=== PATIENT | male | born 1950 | race Two or more races ===

== ENCOUNTER → 2017-04-09 | Outpatient (CLI) | payer OTHER ==
[~2017-04-09] MED LIST: ALBU90OI INH; ALLO300 PO; ALPR.5 PO; ALPR.5CR PO; AMIT50 PO; AMLO5 PO; AMOX500 PO; ASPI81CH PO; AZIT250 PO; Adult Low Dose81 MG PO; Ambien5 MG PO; Bactrim Ds Tab1 EACH PO; CAND32 PO; CITA20 PO; CLON.1 PO; CODACE30 PO; Catapres0.1 MG PO; DEXA4 PO; DOXA4 PO; DOXY100 PO; ERGCAF PO; FAMO20 PO; Flomax0.4 MG PO; GABA300 PO; HYDACE5 PO; HYDCHL12.5 PO; HYDCHL25 PO; HYDCHL50 PO; HYDHCL25 PO; Halcion0.25 MG PO; Hydrochloroth12.5 MG PO; IBUP800 PO; LEVO750 PO; LEVSOD100 PO; LEVSOD50 PO; LISI20 PO; LISI5 PO; LOSA50 PO; LOSHYD100 PO; Lopressor 50 mg50 MG PO; MECL25 PO; MELO7.5 PO; METO100ER PO; METO50ER PO; MONT10T PO; NAPR500 PO; NIFE30ER PO; Norco 5-325 Ta1 EACH PO; OXYACE5T PO; POTCHL10ER PO; POTCHL20ER PO; PROCODE120 PO; PROP120ER; Pantoprazole So40 MG PO; Pyridium100 MG; RANI150 PO; SIMV40 PO; Synthroid50 MCG PO; TAMS.4ER PO; TIROSINT50 MCG PO; TYLECOD3 PO; Zofran Odt4 MG SL; [UNRECOGNIZED DRUG - OTHER]
[2017-04-12 18:32] LABS: Cotinine, Urine <5 ng/mL (<5); Nicotine, Urine <2 ng/mL (<2)
== END | disposition home or self-care (01) ==
LOC: OLS 12:37
PROVIDERS: Ophthalmology
DX: H25.11 Age-related nuclear cataract, right eye (principal)
CPT/HCPCS: G0480

== ENCOUNTER 2017-11-15 11:44 | Emergency (ER) | payer SELFPAY ==
[~2017-11-15] VITALS: Ht 162.6 cm; Wt 84.4 kg
[~2017-11-15 11:44] MED LIST changes: -HYDHCL25 PO; -LEVSOD100 PO; -Pantoprazole So40 MG PO; -TYLECOD3 PO
[2017-11-15] MEDS ORDERED: HYDHCL25 PO (12:48)
== END 2017-11-15 12:56 | disposition home or self-care (01) ==
LOC: ER 11:44
DX: F51.04 Psychophysiologic insomnia (principal); R51 Headache; I10 Essential (primary) hypertension; Z88.6 Allergy status to analgesic agent; Z79.899 Other long term (current) drug therapy; Z87.891 Personal history of nicotine dependence; Z86.73 Personal history of transient ischemic attack (TIA), and cerebral infarction without residual deficits
CPT/HCPCS: 96372; 99282; J1200

== ENCOUNTER 2017-11-22 14:13 | Emergency (ER) | payer MEDICARE ==
[~2017-11-22] VITALS: Ht 170.2 cm; Wt 81.7 kg
[~2017-11-22 14:13] MED LIST changes: +HYDHCL25 PO
[2017-11-22] MEDS ORDERED: Halcion0.25 MG PO (15:04)
== END 2017-11-22 15:32 | disposition home or self-care (01) ==
LOC: ER 14:13
DX: G47.00 Insomnia, unspecified (principal); I10 Essential (primary) hypertension; Z79.899 Other long term (current) drug therapy; Z88.6 Allergy status to analgesic agent; Z86.73 Personal history of transient ischemic attack (TIA), and cerebral infarction without residual deficits
CPT/HCPCS: 99282

== ENCOUNTER 2018-04-10 17:23 | Emergency (ER) | payer MEDICARE, OTHER ==
[~2018-04-10] VITALS: Ht 165.1 cm; Wt 84.4 kg
[~2018-04-10 17:23] MED LIST changes: +LEVSOD100 PO; +Pantoprazole So40 MG PO; +TYLECOD3 PO
[2018-04-10 18:34] LABS: BASOPHILS ABSOLUTE AUTO 0.09 K/mm3 (0.00-0.23); BASOPHILS PERCENT AUTO 1 % (0-2); EOSINOPHILS ABSOLUTE AUTO 0.26 K/mm3 (0.00-0.68); EOSINOPHILS PERCENT AUTO 4 % (0-6); Hematocrit 45.3 % (37.0-53.0); Hemoglobin 15.9 g/dL (13.5-17.5); IMMATURE GRAN ABSOLUTE AUTO 0.03 K/mm3 (0.00-0.10); IMMATURE GRAN PERCENT AUTO 0 % (0-1); LYMPHOCYTES ABSOLUTE AUTO 2.33 K/mm3 (0.84-5.20); LYMPHOCYTES PERCENT AUTO 31 % (21-46); MONOCYTES ABSOLUTE AUTO 1.25 K/mm3 (0.16-1.47); MONOCYTES PERCENT AUTO 17 % (4-13); Mean Corpuscular HGB 30.6 pg (26.0-34.0); Mean Corpuscular HGB Conc 35.1 g/dL (31.5-36.5); Mean Corpuscular Volume 87 fL (80-100); Mean Platelet Volume 10.2 fL (9.1-12.4); NEUTROPHILS ABSOLUTE AUTO 3.57 K/mm3 (1.96-9.15); NEUTROPHILS PERCENT AUTO 47 % (41-73); Platelet Count 214 K/mm3 (150-400); RDW Coefficient Variation 12.8 % (11.7-14.2); White Blood Cell Count 7.53 K/mm3 (4.00-11.30)
[2018-04-10 18:58] LABS: Troponin I <0.015 ng/mL (0.000-0.040)
[2018-04-10 19:02] LABS: Alanine Aminotransfer (ALT/SGP 33 U/L (12-78); Albumin/Globulin Ratio 1.1 (0.8-1.8); Alk Phos 103 U/L (50-136); Anion Gap 8 mmol/L (6-16); Aspartate Aminotrans (AST/SGOT 26 U/L (12-37); Bilirubin, Total 0.6 mg/dL (0.1-1.0); Blood Urea Nitrogen 16 mg/dL (8-24); Bun/Creatinine Ratio 13.6 (12.0-20.0); CO2, Blood 26 mmol/L (21-32); Calcium, Blood 8.5 mg/dL (8.5-10.1); Chloride, Blood 104 mmol/L (98-108); Creatinine, Blood 1.18 mg/dL (0.60-1.20); Globulin, Blood 3.8 g/dL (2.2-4.0); Glomerular Filtration Rate >60 (60-); Glucose, Blood 135 mg/dL (70-99); Potassium, Blood 3.6 mmol/L (3.5-5.5); Sodium, Blood 138 mmol/L (136-145); Total Protein, Blood 7.8 g/dL (6.4-8.2)
[2018-04-10] MEDS ORDERED: TRAZ100 PO (20:12)
[2018-04-10] MEDS ORDERED: BACL20 PO (20:13)
[2018-04-10] MEDS ORDERED: LORPSEER24 (20:14)
== END 2018-04-10 22:18 | disposition home or self-care (01) ==
LOC: ER 17:23
PROVIDERS: Physician Assistant
DX: R51 Headache (principal); Z88.8 Allergy status to other drugs, medicaments and biological substances; Z79.899 Other long term (current) drug therapy; I10 Essential (primary) hypertension; E03.9 Hypothyroidism, unspecified; Z86.73 Personal history of transient ischemic attack (TIA), and cerebral infarction without residual deficits; Z87.891 Personal history of nicotine dependence; Z85.46 Personal history of malignant neoplasm of prostate
CPT/HCPCS: 36415; 71046; 80053; 83690; 84484; 85025; 93005; 93010; 96374; 96375; 99284-25; J1100; J1200; J2405; J2765

== ENCOUNTER 2018-06-27 05:47 | Observation (INO) | payer MEDICARE, OTHER ==
[~2018-06-27] VITALS: Ht 162.6 cm; Wt 78.0 kg
[~2018-06-27 05:47] MED LIST changes: +BACL20 PO; +LORPSEER24; +TRAZ100 PO
[2018-06-27 06:47] LABS: BASOPHILS ABSOLUTE AUTO 0.04 K/mm3 (0.00-0.23); BASOPHILS PERCENT AUTO 1 % (0-2); EOSINOPHILS ABSOLUTE AUTO 0.05 K/mm3 (0.00-0.68); EOSINOPHILS PERCENT AUTO 1 % (0-6); Hematocrit 45.1 % (37.0-53.0); Hemoglobin 15.9 g/dL (13.5-17.5); IMMATURE GRAN ABSOLUTE AUTO 0.04 K/mm3 (0.00-0.10); IMMATURE GRAN PERCENT AUTO 1 % (0-1); LYMPHOCYTES ABSOLUTE AUTO 1.89 K/mm3 (0.84-5.20); LYMPHOCYTES PERCENT AUTO 28 % (21-46); MONOCYTES ABSOLUTE AUTO 0.76 K/mm3 (0.16-1.47); MONOCYTES PERCENT AUTO 11 % (4-13); Mean Corpuscular HGB 30.7 pg (26.0-34.0); Mean Corpuscular HGB Conc 35.3 g/dL (31.5-36.5); Mean Corpuscular Volume 87 fL (80-100); Mean Platelet Volume 9.9 fL (9.1-12.4); NEUTROPHILS ABSOLUTE AUTO 4.08 K/mm3 (1.96-9.15); NEUTROPHILS PERCENT AUTO 59 % (41-73); Platelet Count 197 K/mm3 (150-400); RDW Coefficient Variation 12.9 % (11.7-14.2); RDW Standard Deviation 40.8 fL (35.1-46.3); Red Blood Cell Count 5.18 M/mm3 (4.30-5.90); White Blood Cell Count 6.86 K/mm3 (4.00-11.30)
[2018-06-27] MEDS ORDERED: Inderal40 MG PO (07:03)
[2018-06-27 07:04] LABS: Alanine Aminotransfer (ALT/SGP 32 U/L (12-78); Albumin, Blood 4.1 g/dL (3.4-5.0); Albumin/Globulin Ratio 1.1 (0.8-1.8); Alk Phos 84 U/L (50-136); Anion Gap 8 mmol/L (6-16); Aspartate Aminotrans (AST/SGOT 12 U/L (12-37); Bilirubin, Total 0.4 mg/dL (0.1-1.0); Blood Urea Nitrogen 19 mg/dL (8-24); Bun/Creatinine Ratio 18.6 (12.0-20.0); CO2, Blood 24 mmol/L (21-32); Calcium, Blood 9.2 mg/dL (8.5-10.1); Chloride, Blood 108 mmol/L (98-108); Creatinine, Blood 1.02 mg/dL (0.60-1.20); Ethanol (Alcohol), Blood, Med <3 mg/dL; Globulin, Blood 3.6 g/dL (2.2-4.0); Glomerular Filtration Rate >60 (60-); Glucose, Blood 132 mg/dL (70-99); Potassium, Blood 3.2 mmol/L (3.5-5.5); Sodium, Blood 140 mmol/L (136-145); Total Protein, Blood 7.7 g/dL (6.4-8.2)
[2018-06-27] MEDS ORDERED: AMLO5 PO (07:04)
[2018-06-27 08:40] LABS: Source, Urine Clean Catch
[2018-06-27 08:43] LABS: U Amphetamine Screen Not Detected; U Barbituate Screen Not Detected; U Benzodiazapine Screen Not Detected; U Buprenorphine Screen Not Detected; U Cannabinoids Screen Not Detected; U Cocaine Screen Not Detected; U Methadone Screen Not Detected; U Methamphetamine Screen Not Detected; U Opiates Screen Not Detected; U Oxycodone Screen Not Detected; U Phencyclidine Screen Not Detected; U Propoxyphene Screen Not Detected
[2018-06-27 08:45] LABS: Appearance, Urine Clear (Clear); Bilirubin, Urine Neg (Neg); Blood, Urine Neg (Neg); Color, Urine Yellow (P-Yellow); Glucose Qualitative, Urine Neg (Neg); Ketones, Urine Neg (Neg); Leukocyte Esterase, Urine Neg (Neg); Nitrite, Urine Neg (Neg); Protein, Urine 2+ (Neg); Urobilinogen, Urine NORM (Normal)
[2018-06-27 08:56] LABS: Red Blood Cells, Urine Not Seen /hpf (0-2); Squamous Epithelial Cells Not Seen /hpf (Few); White Blood Cells, Urine Not Seen /hpf (0-5)
[2018-06-27 08:57] LABS: Bacteria Rare /hpf
[2018-06-27] MEDS ORDERED: Esgic Tablet1 EACH PO (12:05)
--- NOTE | 2018-06-27 15:43 | NUR ---
ER ADMIT- PT ARRIVED TO ROOM 357 VIA YURIY, SPOUSE AT BEDSIDE. PT IS MALDIVIAN SPEAKING ONLY, DAUGHTER ABLE TO TRANSLATE. PT A/O TO PERSON, PLACE AND FAMILY. PT DOES NOT FOLLOW DIRECTION WELL AND EASILY DISTRACTED. PT DENIES ANY PAIN OR OTHER COMPLAINTS. LS CLEAR, ON RA. HRR. TELE NSR AT 63. NO EDEMA PRESENT. BTX4. CLINICAL PHYSICIAN ASSISTANT STRONG AND EQUAL, MOUTH SYMMETRICAL. 20G TO RIGHT WRIST RUNNING NS AT 100ML/HR. PT ORIENTED TO ROOM AND CALL SYSTEM. DAUGHTER REPORTS SHE WILL BE STAYING WITH PT.
--- NOTE | 2018-06-27 15:46 | NUR ---
PT TO IMAGING FOR MRI.
--- NOTE | 2018-06-27 18:09 | NUR ---
SHIFT SUMMARY- PT A/O TO PERSON, PLACE AND FAMILY. PT FORGETFUL AND DIFFICULT WITH FOLLOWING DIRECTIONS. PT IS GREEK SPEAKING ONLY, DORMITORY MAID PHONE IN ROOM WELL CHILDREN HELPING TRANSLATE. PT REPORTS SORE NECK PER VISITOR IN ROOM, BACLOFEN GIVEN PER ORDERS. PT DENIES ANY OTHER COMPLAINTS. LS CLEAR, ON RA. TELE NSR 63. NEURO WNL. PER FAMILY PT IS NORMALLY A/O X4 AND REMAINS CONFUSED. PT PLACED ON BED ALARM DUE TO FOUND WONDERING THE HALLS. FAMILY TO STAY WITH PT TONIGHT. NO OTHER ACUTE CHANGES THIS SHIFT.
[2018-06-27] MEDS ORDERED: LACT10SY PO (18:22)
[2018-06-27] MEDS ORDERED: MONT10T PO (18:23)
[2018-06-27] MEDS ORDERED: ACET500 PO (18:24)
--- NOTE | 2018-06-27 18:31 | NUR ---
SON BROUGHT IN HOME MEDICATIONS, HOME MED LIST UPDATED.
[2018-06-28 05:03] LABS: BASOPHILS ABSOLUTE AUTO 0.03 K/mm3 (0.00-0.23); BASOPHILS PERCENT AUTO 1 % (0-2); EOSINOPHILS ABSOLUTE AUTO 0.06 K/mm3 (0.00-0.68); EOSINOPHILS PERCENT AUTO 1 % (0-6); IMMATURE GRAN ABSOLUTE AUTO 0.03 K/mm3 (0.00-0.10); IMMATURE GRAN PERCENT AUTO 1 % (0-1); LYMPHOCYTES ABSOLUTE AUTO 2.21 K/mm3 (0.84-5.20); LYMPHOCYTES PERCENT AUTO 36 % (21-46); MONOCYTES ABSOLUTE AUTO 0.78 K/mm3 (0.16-1.47); MONOCYTES PERCENT AUTO 13 % (4-13); Mean Corpuscular HGB 30.5 pg (26.0-34.0); Mean Corpuscular HGB Conc 34.9 g/dL (31.5-36.5); Mean Corpuscular Volume 87 fL (80-100); Mean Platelet Volume 9.9 fL (9.1-12.4); NEUTROPHILS ABSOLUTE AUTO 2.99 K/mm3 (1.96-9.15); NEUTROPHILS PERCENT AUTO 49 % (41-73); Platelet Count 213 K/mm3 (150-400); RDW Coefficient Variation 13.1 % (11.7-14.2); RDW Standard Deviation 41.1 fL (35.1-46.3); Red Blood Cell Count 4.92 M/mm3 (4.30-5.90)
[2018-06-28 05:23] LABS: Anion Gap 6 mmol/L (6-16); Blood Urea Nitrogen 17 mg/dL (8-24); Bun/Creatinine Ratio 17.4 (12.0-20.0); CO2, Blood 25 mmol/L (21-32); Calcium, Blood 8.9 mg/dL (8.5-10.1); Chloride, Blood 112 mmol/L (98-108); Creatinine, Blood 0.98 mg/dL (0.60-1.20); Glomerular Filtration Rate >60 (60-); Glucose, Blood 109 mg/dL (70-99); Potassium, Blood 3.6 mmol/L (3.5-5.5); Sodium, Blood 143 mmol/L (136-145)
--- NOTE | 2018-06-28 05:30 | NUR ---
68 Y/O MALE RESTED COMFORTABLY ALL EVENING WITH SON SPENDING THE NIGHT AT BEDSIDE IN LOUNGE CHAIR. PT HAS NO NEURO DEFICITS. PT ABLE TO TRANSFER AND AMBULATE TO BATHROOM WITHOUT ISSUE X 1 STANDBY ASSIST. PT DENIES PAIN OR NAUSEA. PTS BED IN LOW POSITION WITH CALL LIGHT AT SIDE.
[2018-06-28] MEDS ORDERED: ASPI81CH PO (12:59)
[2018-06-28] MEDS ORDERED: ATOR10 PO (13:00)
--- NOTE | 2018-06-28 14:00 | NUR ---
D/C INSTRUCTIONS PROVIDED AND EXPLAINED TO SON WHO TRANSLATED TO PT. IV AND TELE REMOVED. MEDS FAXED TO [facility]. PT D/C WITH SPOUSE AND SON VIA AMBULATION AT 1320.
== END 2018-06-28 13:26 | disposition home or self-care (01) ==
LOC: ER 05:47 → MEDS 05:48 → ENPENDDIS 06-28 12:40 → MEDS 06-28 13:26
PROVIDERS: Emergency Medicine; ADMIT Hospitalist
DX: G45.9 Transient cerebral ischemic attack, unspecified (principal); I67.82 Cerebral ischemia; G43.909 Migraine, unspecified, not intractable, without status migrainosus; I10 Essential (primary) hypertension; E03.9 Hypothyroidism, unspecified; K21.9 Gastro-esophageal reflux disease without esophagitis; N40.0 Benign prostatic hyperplasia without lower urinary tract symptoms; G47.00 Insomnia, unspecified; Z88.6 Allergy status to analgesic agent; Z79.899 Other long term (current) drug therapy; Z86.73 Personal history of transient ischemic attack (TIA), and cerebral infarction without residual deficits; Z85.46 Personal history of malignant neoplasm of prostate; Z79.82 Long term (current) use of aspirin
CPT/HCPCS: 36415; 70450; 70551; 71046; 80048; 80053; 81001; 82140; 85025; 93005; 93010; 93306; 93880; 99285-25; G0480; J1650; J7030

== ENCOUNTER → 2018-07-02 | Outpatient (CLI) | payer MEDICARE, OTHER ==
[~2018-07-02] MED LIST changes: +ACET500 PO; +ATOR10 PO; +Esgic Tablet1 EACH PO; +Inderal40 MG PO; +LACT10SY PO
[2018-07-02 17:47] LABS: Bilirubin, Urine Neg (Neg); Blood, Urine Neg (Neg); Glucose Qualitative, Urine Neg (Neg); Ketones, Urine Neg (Neg); Leukocyte Esterase, Urine Neg (Neg); Nitrite, Urine Neg (Neg); Protein, Urine 1+ (Neg); Urobilinogen, Urine NORM (Normal)
[2018-07-02 18:25] LABS: Appearance, Urine Clear (Clear); Color, Urine Yellow (P-Yellow)
== END | disposition home or self-care (01) ==
LOC: LAB 17:05 → LAB SHORT 17:05
PROVIDERS: Nurse Practitioner Family
DX: R39.9 Unspecified symptoms and signs involving the genitourinary system (principal)
CPT/HCPCS: 81003

== ENCOUNTER 2018-07-20 08:59 | Emergency (ER) | payer MEDICARE, OTHER ==
[~2018-07-20] VITALS: Ht 172.7 cm; Wt 102.1 kg
[2018-07-20 10:06] LABS: International Normalized Ratio 0.98; Prothrombin Time Results 10.4 Sec (9.7-11.5)
[2018-07-20 10:09] LABS: Alanine Aminotransfer (ALT/SGP 29 U/L (12-78); Albumin, Blood 4.5 g/dL (3.4-5.0); Albumin/Globulin Ratio 1.1 (0.8-1.8); Alk Phos 98 U/L (50-136); Anion Gap 9 mmol/L (6-16); Aspartate Aminotrans (AST/SGOT 10 U/L (12-37); Bilirubin, Total 0.5 mg/dL (0.1-1.0); Blood Urea Nitrogen 13 mg/dL (8-24); Bun/Creatinine Ratio 13.9 (12.0-20.0); CO2, Blood 28 mmol/L (21-32); Calcium, Blood 9.5 mg/dL (8.5-10.1); Chloride, Blood 104 mmol/L (98-108); Creatinine, Blood 0.94 mg/dL (0.60-1.20); Ethanol (Alcohol), Blood, Med <3 mg/dL; Glomerular Filtration Rate >60 (60-); Glucose, Blood 140 mg/dL (70-99); Potassium, Blood 3.4 mmol/L (3.5-5.5); Sodium, Blood 141 mmol/L (136-145); Total Protein, Blood 8.5 g/dL (6.4-8.2)
[2018-07-20 10:20] LABS: BASOPHILS ABSOLUTE AUTO 0.05 K/mm3 (0.00-0.23); BASOPHILS PERCENT AUTO 1 % (0-2); EOSINOPHILS ABSOLUTE AUTO 0.05 K/mm3 (0.00-0.68); EOSINOPHILS PERCENT AUTO 1 % (0-6); Hemoglobin 17.2 g/dL (13.5-17.5); IMMATURE GRAN ABSOLUTE AUTO 0.05 K/mm3 (0.00-0.10); IMMATURE GRAN PERCENT AUTO 1 % (0-1); LYMPHOCYTES ABSOLUTE AUTO 1.71 K/mm3 (0.84-5.20); LYMPHOCYTES PERCENT AUTO 19 % (21-46); MONOCYTES ABSOLUTE AUTO 0.74 K/mm3 (0.16-1.47); MONOCYTES PERCENT AUTO 8 % (4-13); Mean Corpuscular HGB 30.8 pg (26.0-34.0); Mean Corpuscular HGB Conc 35.8 g/dL (31.5-36.5); Mean Corpuscular Volume 86 fL (80-100); Mean Platelet Volume 9.9 fL (9.1-12.4); NEUTROPHILS ABSOLUTE AUTO 6.31 K/mm3 (1.96-9.15); NEUTROPHILS PERCENT AUTO 71 % (41-73); Platelet Count 227 K/mm3 (150-400); RDW Coefficient Variation 12.8 % (11.7-14.2); RDW Standard Deviation 39.8 fL (35.1-46.3); Red Blood Cell Count 5.58 M/mm3 (4.30-5.90); White Blood Cell Count 8.91 K/mm3 (4.00-11.30)
[2018-07-20 10:43] LABS: Magnesium, Blood 2.4 mg/dL (1.6-2.4); Troponin I <0.015 ng/mL (0.000-0.040)
[2018-07-20 11:21] LABS: Source, Urine Clean Catch
[2018-07-20 11:24] LABS: CPK Creatine Kinase 62 U/L (39-308)
[2018-07-20 11:24] LABS: Appearance, Urine Hazy (Clear); Bilirubin, Urine Neg (Neg); Blood, Urine Neg (Neg); Color, Urine Yellow (P-Yellow); Glucose Qualitative, Urine Neg (Neg); Ketones, Urine Neg (Neg); Leukocyte Esterase, Urine Neg (Neg); Nitrite, Urine Neg (Neg); Protein, Urine 3+ (Neg); Specific Gravity, Urine 1.015 (1.003-1.022); Urobilinogen, Urine NORM (Normal)
[2018-07-20 11:28] LABS: Creatine Kinase MB <1.0 ng/mL (0.0-3.6); Creatine Kinase MB Index Unable to Calculate (0.0-4.0)
[2018-07-20 11:37] LABS: Red Blood Cells, Urine 0-2 /hpf (0-2); White Blood Cells, Urine Not Seen /hpf (0-5)
[2018-07-20 11:38] LABS: Amorphous Heavy (0-Heavy); Bacteria Rare /hpf; Mucus Light (0-Heavy); Squamous Epithelial Cells Not Seen /hpf (Few)
[2018-07-20 11:42] LABS: U Amphetamine Screen Not Detected; U Barbituate Screen Not Detected; U Benzodiazapine Screen Not Detected; U Buprenorphine Screen Not Detected; U Cannabinoids Screen Not Detected; U Cocaine Screen Not Detected; U Methadone Screen Not Detected; U Methamphetamine Screen Not Detected; U Opiates Screen Not Detected; U Oxycodone Screen Not Detected; U Phencyclidine Screen Not Detected; U Propoxyphene Screen Not Detected
== END 2018-07-20 13:08 | disposition home or self-care (01) ==
LOC: ER 08:59
PROVIDERS: Emergency Medicine
DX: T44.3X1A Poisoning by other parasympatholytics [anticholinergics and antimuscarinics] and spasmolytics, accidental (unintentional), initial encounter (principal); R41.82 Altered mental status, unspecified; I10 Essential (primary) hypertension; Z86.73 Personal history of transient ischemic attack (TIA), and cerebral infarction without residual deficits; Z88.6 Allergy status to analgesic agent; Z79.899 Other long term (current) drug therapy; Z79.82 Long term (current) use of aspirin
CPT/HCPCS: 36415; 70450; 80053; 81001; 82140; 82550; 82553; 83735; 84484; 85025; 85610; 85730; 93005; 93010; G0480; J2405; J7030

== ENCOUNTER 2018-10-20 17:19 | Emergency (ER) | payer MEDICARE, OTHER ==
[~2018-10-20] VITALS: Ht 165.1 cm; Wt 81.7 kg
[2018-10-20] MEDS ORDERED: Prednisone20 MG PO (18:49)
== END 2018-10-20 18:57 | disposition home or self-care (01) ==
LOC: ER 17:19
DX: J30.9 Allergic rhinitis, unspecified (principal); Z88.8 Allergy status to other drugs, medicaments and biological substances; Z79.899 Other long term (current) drug therapy; Z79.82 Long term (current) use of aspirin; I10 Essential (primary) hypertension; Z86.73 Personal history of transient ischemic attack (TIA), and cerebral infarction without residual deficits; E03.9 Hypothyroidism, unspecified; Z85.46 Personal history of malignant neoplasm of prostate; Z87.891 Personal history of nicotine dependence
CPT/HCPCS: 87081; 87430; 99283; J7512

== ENCOUNTER 2019-03-17 08:49 | Day surgery (SDC) | payer MEDICARE, OTHER ==
[~2019-03-17] VITALS: Ht 157.5 cm; Wt 85.2 kg
[~2019-03-17 08:49] MED LIST changes: +ACETAMINOPHEN500 M2; +AMLO10 PO; +ATOR40TA PO; +AZELASTINE137 MCG/0. INH; +Aspirin EC81 MG PO; +DOCU100 PO; +FENO160 PO; +GAVILAX17 GM PO; +Generlac10 GM/15 M PO; +K-Dur20 MEQ PO; +ONDA8 PO; +PANT40 PO; +Prednisone20 MG PO; +SINUS RINSE PR1 EACH; +TRAZ50 PO; +ZYRTEC10 M2 PO
== END 2019-03-17 12:25 | disposition home or self-care (01) ==
LOC: ORSCSDS 08:49
PROVIDERS: Otolaryngology
PROC: 09BM0ZZ Excision of Nasal Septum, Open Approach (ICD-10-PCS; principal; 2019-03-17 10:30)
DX: J34.2 Deviated nasal septum (principal); J34.3 Hypertrophy of nasal turbinates; I10 Essential (primary) hypertension; K21.9 Gastro-esophageal reflux disease without esophagitis; E66.9 Obesity, unspecified; Z68.34 Body mass index [BMI] 34.0-34.9, adult; Z79.899 Other long term (current) drug therapy
CPT/HCPCS: J1100; J2250; J2405; J2704; J2710; J3010; J7120

== ENCOUNTER → 2019-04-16 | Outpatient (CLI) | payer MEDICARE, OTHER | END | disposition home or self-care (01) | LOC: LAB 15:35 → LAB SHORT 15:35 | DX: R10.9 Unspecified abdominal pain (principal) | CPT/HCPCS: 87338 ==

== ENCOUNTER 2019-10-10 10:00 | Day surgery (SDC) | payer MEDICARE, OTHER ==
[~2019-10-10] VITALS: Ht 162.6 cm; Wt 84.5 kg
--- NOTE | 2019-10-10 14:03 | NUR ---
Patient up to Ambulate independently. Gait steady. Discharge instructions reviewed with patient AND PT'S . Patient verbalizes understanding. Copy given to patient to take home.
--- NOTE | 2019-10-10 14:03 | NUR ---
Discharged via wheelchair to private car for ride home.
== END 2019-10-10 22:38 | disposition home or self-care (01) ==
LOC: ORSCMMR 10:00
PROVIDERS: Internal Medicine Gastroenterology
PROC: 0DB98ZX Excision of Duodenum, Via Natural or Artificial Opening Endoscopic, Diagnostic (ICD-10-PCS; principal; 2019-10-10 11:15)
PROC: 0DB78ZX Excision of Stomach, Pylorus, Via Natural or Artificial Opening Endoscopic, Diagnostic (ICD-10-PCS; principal; 2019-10-10 11:15)
PROC: 0DB58ZX Excision of Esophagus, Via Natural or Artificial Opening Endoscopic, Diagnostic (ICD-10-PCS; principal; 2019-10-10 11:15)
PROC: 0DBM8ZX Excision of Descending Colon, Via Natural or Artificial Opening Endoscopic, Diagnostic (ICD-10-PCS; principal; 2019-10-10 11:15)
DX: K21.9 Gastro-esophageal reflux disease without esophagitis (principal); R14.0 Abdominal distension (gaseous); K59.00 Constipation, unspecified; K29.70 Gastritis, unspecified, without bleeding; D12.4 Benign neoplasm of descending colon; K57.30 Diverticulosis of large intestine without perforation or abscess without bleeding; K64.8 Other hemorrhoids; I10 Essential (primary) hypertension; Z87.891 Personal history of nicotine dependence; Z79.899 Other long term (current) drug therapy; Z85.46 Personal history of malignant neoplasm of prostate
CPT/HCPCS: 88305; 88342; J2704; J7120

== ENCOUNTER → 2019-11-26 | Outpatient (CLI) | payer MEDICARE, OTHER ==
[2019-11-26 17:45] LABS: Source, Urine Clean Catch
[2019-11-26 19:52] LABS: Appearance, Urine Clear (Clear); Bilirubin, Urine Neg (Neg); Blood, Urine Neg (Neg); Color, Urine Yellow (P-Yellow); Glucose Qualitative, Urine Neg (Neg); Ketones, Urine Neg (Neg); Leukocyte Esterase, Urine Neg (Neg); Nitrite, Urine Neg (Neg); Protein, Urine 2+ (Neg); Urobilinogen, Urine NORM (Normal)
[2019-11-26 20:08] LABS: Bacteria Rare /hpf; Red Blood Cells, Urine 0-2 /hpf (0-2); Squamous Epithelial Cells Rare /hpf (Few); White Blood Cells, Urine 0-2 /hpf (0-5)
== END | disposition home or self-care (01) ==
LOC: LAB SHORT 17:42 → PLD 17:42
PROVIDERS: Nurse Practitioner Family
DX: R30.0 Dysuria (principal); R39.9 Unspecified symptoms and signs involving the genitourinary system
CPT/HCPCS: 81001

== ENCOUNTER 2020-08-13 14:38 | Emergency (ER) | payer MEDICARE, OTHER ==
[~2020-08-13] VITALS: Ht 160 cm; Wt 84.4 kg
[2020-08-13] MEDS ORDERED: PSEUDOEPHEDRINE30 M1 PO (16:37)
[2020-08-13] MEDS ORDERED: Kristalose20 GM PO (17:37)
[2020-08-13] MEDS ORDERED: Halcion0.25 MG PO (17:37)
== END 2020-08-13 18:22 | disposition home or self-care (01) ==
LOC: ER 14:38
DX: G47.00 Insomnia, unspecified (principal); I10 Essential (primary) hypertension; K21.9 Gastro-esophageal reflux disease without esophagitis; E03.9 Hypothyroidism, unspecified; Z88.6 Allergy status to analgesic agent; Z88.8 Allergy status to other drugs, medicaments and biological substances; Z86.73 Personal history of transient ischemic attack (TIA), and cerebral infarction without residual deficits; Z79.899 Other long term (current) drug therapy
CPT/HCPCS: 99282; A9270

== ENCOUNTER 2020-12-31 11:12 | Emergency (ER) | payer MEDICARE, OTHER ==
[~2020-12-31] VITALS: Ht 160 cm; Wt 81.7 kg
[~2020-12-31 11:12] MED LIST changes: +Kristalose20 GM PO; +PSEUDOEPHEDRINE30 M1 PO
[2020-12-31] MEDS ORDERED: EUTHYROX125 MC1 PO (12:05)
[2020-12-31] MEDS ORDERED: METOCLOPRAMIDE H PO (12:06)
[2020-12-31] MEDS ORDERED: LOSARTAN POTASS25 M2 PO (12:06)
[2020-12-31] MEDS ORDERED: FAMO20 PO (12:06)
[2020-12-31] MEDS ORDERED: IMITREX25 MG (12:07)
[2020-12-31] MEDS ORDERED: TRAZ50 PO (12:07)
[2020-12-31] MEDS ORDERED: ATOR40TA PO (12:08)
[2020-12-31] MEDS ORDERED: CONSTULOSE10 GM/155 PO (12:08)
[2020-12-31 12:09] LABS: BASOPHILS ABSOLUTE AUTO 0.07 K/mm3 (0.00-0.23); BASOPHILS PERCENT AUTO 1 % (0-2); EOSINOPHILS ABSOLUTE AUTO 0.09 K/mm3 (0.00-0.68); EOSINOPHILS PERCENT AUTO 1 % (0-6); Hemoglobin 16.4 g/dL (13.5-17.5); IMMATURE GRAN ABSOLUTE AUTO 0.02 K/mm3 (0.00-0.10); IMMATURE GRAN PERCENT AUTO 0 % (0-1); LYMPHOCYTES ABSOLUTE AUTO 2.14 K/mm3 (0.84-5.20); LYMPHOCYTES PERCENT AUTO 32 % (21-46); MONOCYTES ABSOLUTE AUTO 1.07 K/mm3 (0.16-1.47); MONOCYTES PERCENT AUTO 16 % (4-13); Mean Corpuscular HGB 29.5 pg (26.0-34.0); Mean Corpuscular HGB Conc 34.9 g/dL (31.5-36.5); Mean Corpuscular Volume 85 fL (80-100); Mean Platelet Volume 10.3 fL (9.1-12.4); NEUTROPHILS PERCENT AUTO 50 % (41-73); Platelet Count 189 K/mm3 (150-400); RDW Coefficient Variation 13.2 % (11.7-14.2); RDW Standard Deviation 41.1 fL (35.1-46.3); Red Blood Cell Count 5.55 M/mm3 (4.30-5.90); White Blood Cell Count 6.79 K/mm3 (4.00-11.30)
[2020-12-31] MEDS ORDERED: FLUT.05NI (12:14)
[2020-12-31] MEDS ORDERED: ASPI81CH PO (12:15)
[2020-12-31] MEDS ORDERED: PANTOPRAZOLE SO40 M2 PO (12:15)
[2020-12-31 12:22] LABS: Alanine Aminotransfer (ALT/SGP 25 U/L (12-78); Albumin, Blood 3.7 g/dL (3.4-5.0); Albumin/Globulin Ratio 0.9 (0.8-1.8); Alk Phos 77 U/L (50-136); Anion Gap 4 mmol/L (6-16); Aspartate Aminotrans (AST/SGOT 20 U/L (12-37); Bilirubin, Total 0.5 mg/dL (0.1-1.0); Blood Urea Nitrogen 12 mg/dL (8-24); Bun/Creatinine Ratio 10.7 (12.0-20.0); CO2, Blood 27 mmol/L (21-32); Calcium, Blood 9.1 mg/dL (8.5-10.1); Chloride, Blood 108 mmol/L (98-108); Creatinine, Blood 1.12 mg/dL (0.60-1.20); Glomerular Filtration Rate >60 (60-); Glucose, Blood 104 mg/dL (70-99); Potassium, Blood 3.5 mmol/L (3.5-5.5); Sodium, Blood 139 mmol/L (136-145); Total Protein, Blood 7.7 g/dL (6.4-8.2); Troponin I <0.015 ng/mL (0.000-0.040)
[2020-12-31] MEDS ORDERED: AMLO10 PO (15:14)
== END 2020-12-31 15:40 | disposition home or self-care (01) ==
LOC: ER 11:12
PROVIDERS: Emergency Medicine
DX: I10 Essential (primary) hypertension (principal); R07.89 Other chest pain; E03.9 Hypothyroidism, unspecified; K21.9 Gastro-esophageal reflux disease without esophagitis; Z88.8 Allergy status to other drugs, medicaments and biological substances; Z79.899 Other long term (current) drug therapy
CPT/HCPCS: 36415; 70450; 71045; 80053; 84484; 85025; 93005; 93010; 99284-25; A9270; J2405

== ENCOUNTER → 2021-05-17 | Outpatient (CLI) | payer MEDICARE, OTHER ==
[~2021-05-17] MED LIST changes: +CONSTULOSE10 GM/155 PO; +EUTHYROX125 MC1 PO; +FLUT.05NI; +IMITREX25 MG; +LOSARTAN POTASS25 M2 PO; +METOCLOPRAMIDE H PO; +PANTOPRAZOLE SO40 M2 PO
[2021-05-17 16:23] LABS: Free Thyroxine 1.53 ng/dL (0.70-1.60); Thyroid Stimulating Hormone 0.39 uIU/mL (0.360-4.800)
== END ==
LOC: LAB SHORT 15:14 → LAB 15:14
PROVIDERS: Chiropractor
DX: E03.9 Hypothyroidism, unspecified (principal)
CPT/HCPCS: 84439; 84443

== ENCOUNTER 2021-06-03 14:22 | Emergency (ER) | payer MEDICARE, OTHER ==
[~2021-06-03] VITALS: Ht 170.2 cm; Wt 90.7 kg
[2021-06-03 15:26] LABS: BASOPHILS ABSOLUTE AUTO 0.04 K/mm3 (0.00-0.23); BASOPHILS PERCENT AUTO 1 % (0-2); EOSINOPHILS ABSOLUTE AUTO 0.07 K/mm3 (0.00-0.68); EOSINOPHILS PERCENT AUTO 1 % (0-6); Hematocrit 50.4 % (37.0-53.0); IMMATURE GRAN ABSOLUTE AUTO 0.01 K/mm3 (0.00-0.10); IMMATURE GRAN PERCENT AUTO 0 % (0-1); LYMPHOCYTES ABSOLUTE AUTO 1.74 K/mm3 (0.84-5.20); LYMPHOCYTES PERCENT AUTO 30 % (21-46); MONOCYTES ABSOLUTE AUTO 0.75 K/mm3 (0.16-1.47); MONOCYTES PERCENT AUTO 13 % (4-13); Mean Corpuscular HGB 29.4 pg (26.0-34.0); Mean Corpuscular HGB Conc 33.7 g/dL (31.5-36.5); Mean Corpuscular Volume 87 fL (80-100); Mean Platelet Volume 10.5 fL (9.1-12.4); NEUTROPHILS PERCENT AUTO 55 % (41-73); Platelet Count 198 K/mm3 (150-400); RDW Coefficient Variation 13.2 % (11.7-14.2); RDW Standard Deviation 41.9 fL (35.1-46.3); Red Blood Cell Count 5.78 M/mm3 (4.30-5.90); White Blood Cell Count 5.81 K/mm3 (4.00-11.30)
[2021-06-03 15:41] LABS: Albumin, Blood 3.6 g/dL (3.4-5.0); Bilirubin, Total 0.5 mg/dL (0.1-1.0); Creatinine, Blood 1.2 mg/dL (0.60-1.20); Globulin, Blood 3.7 g/dL (2.2-4.0); Potassium, Blood 3.9 mmol/L (3.5-5.5); Total Protein, Blood 7.3 g/dL (6.4-8.2)
[2021-06-03 15:58] LABS: Influenza A, PCR NEGATIVE (NEGATIVE); Influenza B, PCR NEGATIVE (NEGATIVE); Resp Syncytial Virus, PCR NEGATIVE (NEGATIVE); SARS-Cov-2 (COVID-19) PCR, MMC NEGATIVE (NEGATIVE)
[2021-06-03] MEDS ORDERED: HYDR1TAB94 PO (21:17)
[2021-06-03] MEDS ORDERED: MIRALAX17 GM PO (21:17)
== END 2021-06-03 21:29 | disposition home or self-care (01) ==
LOC: ER 14:22
PROVIDERS: Physician Assistant
DX: I10 Essential (primary) hypertension (principal); R10.13 Epigastric pain; R51.9 Headache, unspecified; K21.9 Gastro-esophageal reflux disease without esophagitis; E03.9 Hypothyroidism, unspecified; Z86.73 Personal history of transient ischemic attack (TIA), and cerebral infarction without residual deficits; Z88.6 Allergy status to analgesic agent; Z88.8 Allergy status to other drugs, medicaments and biological substances; Z79.899 Other long term (current) drug therapy; Z79.82 Long term (current) use of aspirin
CPT/HCPCS: 0241U; 36415; 71045; 74177; 80053; 84484; 85025; 93005; 93010; 96374-59; 99284-25; A9270; J0360; Q9967

== ENCOUNTER 2021-08-29 01:37 | Observation (INO) | payer MEDICARE, OTHER ==
[~2021-08-29] VITALS: Ht 167.6 cm; Wt 79.7 kg
[~2021-08-29 01:37] MED LIST changes: +HYDR1TAB94 PO; +MIRALAX17 GM PO
[2021-08-29 01:59] LABS: BASOPHILS ABSOLUTE AUTO 0.06 K/mm3 (0.00-0.23); BASOPHILS PERCENT AUTO 1 % (0-2); EOSINOPHILS ABSOLUTE AUTO 0.14 K/mm3 (0.00-0.68); EOSINOPHILS PERCENT AUTO 2 % (0-6); Hematocrit 42.1 % (37.0-53.0); Hemoglobin 15.2 g/dL (13.5-17.5); IMMATURE GRAN ABSOLUTE AUTO 0.02 K/mm3 (0.00-0.10); IMMATURE GRAN PERCENT AUTO 0 % (0-1); LYMPHOCYTES ABSOLUTE AUTO 2.13 K/mm3 (0.84-5.20); LYMPHOCYTES PERCENT AUTO 32 % (21-46); MONOCYTES ABSOLUTE AUTO 1.12 K/mm3 (0.16-1.47); MONOCYTES PERCENT AUTO 17 % (4-13); Mean Corpuscular HGB 29.9 pg (26.0-34.0); Mean Corpuscular HGB Conc 36.1 g/dL (31.5-36.5); Mean Corpuscular Volume 83 fL (80-100); Mean Platelet Volume 9.4 fL (9.1-12.4); NEUTROPHILS ABSOLUTE AUTO 3.22 K/mm3 (1.96-9.15); NEUTROPHILS PERCENT AUTO 48 % (41-73); Platelet Count 203 K/mm3 (150-400); RDW Standard Deviation 39.3 fL (35.1-46.3); Red Blood Cell Count 5.09 M/mm3 (4.30-5.90); White Blood Cell Count 6.69 K/mm3 (4.00-11.30)
[2021-08-29 02:20] LABS: Alanine Aminotransfer (ALT/SGP 21 U/L (12-78); Albumin, Blood 3.8 g/dL (3.4-5.0); Albumin/Globulin Ratio 1.2 (0.8-1.8); Alk Phos 76 U/L (50-136); Anion Gap 9 mmol/L (6-16); Aspartate Aminotrans (AST/SGOT 16 U/L (12-37); Bilirubin, Total 0.4 mg/dL (0.1-1.0); Blood Urea Nitrogen 13 mg/dL (8-24); Bun/Creatinine Ratio 11.3 (12.0-20.0); CO2, Blood 31 mmol/L (21-32); Calcium, Blood 9.1 mg/dL (8.5-10.1); Chloride, Blood 94 mmol/L (98-108); Creatinine, Blood 1.15 mg/dL (0.60-1.20); Ethanol (Alcohol), Blood, Med <3 mg/dL; Globulin, Blood 3.3 g/dL (2.2-4.0); Glomerular Filtration Rate 68 (60-); Glucose, Blood 116 mg/dL (70-99); Magnesium, Blood 2.1 mg/dL (1.6-2.4); Potassium, Blood 3.1 mmol/L (3.5-5.5); Sodium, Blood 134 mmol/L (136-145); Total Protein, Blood 7.1 g/dL (6.4-8.2)
[2021-08-29 02:33] LABS: Source, Urine Voided
[2021-08-29 02:41] LABS: Bilirubin, Urine Neg (Neg); Blood, Urine Neg (Neg); Glucose Qualitative, Urine Neg (Neg); Ketones, Urine Neg (Neg); Leukocyte Esterase, Urine Neg (Neg); Nitrite, Urine Neg (Neg); Protein, Urine Neg (Neg); Urobilinogen, Urine NORM (Normal)
[2021-08-29 02:48] LABS: Appearance, Urine Clear (Clear); Color, Urine Pale Yellow (P-Yellow)
[2021-08-29 04:07] LABS: Influenza A, PCR NEGATIVE (NEGATIVE); Influenza B, PCR NEGATIVE (NEGATIVE); Resp Syncytial Virus, PCR NEGATIVE (NEGATIVE); SARS-Cov-2 (COVID-19) PCR, MMC NEGATIVE (NEGATIVE)
[2021-08-29] MEDS ORDERED: TRAZ100 PO (05:21)
[2021-08-29] MEDS ORDERED: LOSARTAN-HCTZ1 EAC5 PO (05:21)
[2021-08-29] MEDS ORDERED: NURTEC ODT75 MG PO (05:23)
[2021-08-29] MEDS ORDERED: CARVEDILOL3.125 MG PO (05:23)
[2021-08-29] MEDS ORDERED: TAMSULOSIN HCL0.4 M1 PO (05:23)
[2021-08-29] MEDS ORDERED: NEURONTIN300 MG PO (05:23)
[2021-08-29] MEDS ORDERED: EUTHYROX125 MC1 PO (05:24)
[2021-08-29 05:41] LABS: Cholesterol 186 mg/dL (50-200); HDL Cholesterol 46 mg/dL (>39); Low Density Lipoprotein Chol 91 mg/dL (0-110); Triglycerides 245 mg/dL (30-160); Very Low Density Lipoprot Chol 49 mg/dL (6-32)
--- NOTE | 2021-08-29 10:45 | NUR ---
Echocardiogram completed.
--- NOTE | 2021-08-29 18:45 | NUR ---
ADMISSION/SHIFT SUMMARY: PT ADMIT FROM ER ARRIVING APPROX 1530 TO UNIT. PT ABLE TO STAND AND TRANSFER SELF F/GURNEY TO BED W/SBA. PT IS A&Ox4, [place] SPEAKING W/FAMILY IN ROOM FOR TRANSLATION. SATS >93% ON RA. SR ON MONITOR, HTN APPEARS CONTROLLED AT THIS TIME. PT REPORTS MILD IMPROVEMENT TO HEADACHE, REPORTS CONTINUED DIZZINESS. ORTHO VS COMPLETED AND IN CHART. PT AMBULATES TO/FROM RESTROOM W/SBA, TOLERATES WELL. AT THIS TIME, PT RESTING QUIETLY IN ROOM WITH FAMILY AT BEDSIDE. WCTM.
[2021-08-30 04:06] LABS: Calcium, Blood 8.9 mg/dL (8.5-10.1); Creatinine, Blood 1.25 mg/dL (0.60-1.20); Potassium, Blood 3.3 mmol/L (3.5-5.5)
--- NOTE | 2021-08-30 06:04 | NUR ---
SHIFT SUMMARY ASSUMED CARE OF PT AROUND 1900. PT IS A/OX4 BUT DIFFICULT TO ASSESS DUE TO ONLY WOLOF SPEAKING. SON EXPRESSSED CONCERN EARLIER THAT PT WAS TAKING TOO MANY MEDICATIONS AND POSSIBLE MULTIPLE TIMES, CAUSEING HIS HIGH BLOOD PRESSSURE. PT SON EXPRESSED THAT SOMETIMES HE DOES NOT KNOW WHAT HIS FATHER SAYS. LUNG SOUNDS CLEAR. HEART SOUNDS REGULAR. NO ACUTE EVENTS DURING THE NIGHT, PT SLEPT T/O THE NIGHT. PT STAYED WITH PT.
--- NOTE | 2021-08-30 08:53 | NUR ---
DR. GREEN CAME INTO PATIENTS ROOM AND USED THE PHONE VARIETY LATHE OPERATOR TO COMMUNICATE. SPOKE WITH PATIENT AND ON HOW IMPORTANT IT IS HE TAKES HIS BP MEDICATIONS AND TO KEEP HIS BP 150 AND BELOW SYSTOLIC. BOTH VERBALIZED UNDERSTANDING AND HAD NO FURTHER QUESTIONS. CALL LIGHT WITHIN REACH. TOLD THE PATIENT TO POINT AT THE VARIETY LATHE OPERATOR PHONE IF HE OR HIS HAD ANY MORE QUESTIONS OR NEEDED ANYTHING.
[2021-08-30] MEDS ORDERED: LOSARTAN POTAS100 M1 PO (11:34)
[2021-08-30] MEDS ORDERED: CATAPRES0.2 M1 PO (11:34)
--- NOTE | 2021-08-30 12:10 | NUR ---
DISCHARGE NOTE: PATIENTS SON WAS IN THE ROOM AND VERBALIZED THAT HE WAS COMFORTABLE TRANSLATING TO HIS FATHER ABOUT INSTRUCTIONS. BOTH VERBALIZED UNDERSTANDING OF INSTRUCTIONS AND HAD NO FURTHER QUESTIONS. IV WAS TAKEN OUT AND WNL. PATIENTS BP HAS BEEN IN THE 130'S SYSTOLIC. PATIENT DENIES HEADACHE AND DIZZINESS AT THIS TIME. PATIENTS NEW MEDICATIONS WERE FAXED TO HIS PREFERRED PHARMACY WHICH IS [facility]. PATIENT HAS ITEMS IN THE ROOM GATHERED AND IS DRESSED. PATIENT REFUSES THE WHEELCHAIR AND WOULD PREFER TO WALK TO SON'S CAR TO BE TAKEN HOME.
== END 2021-08-30 12:31 | disposition home or self-care (01) ==
LOC: ER 01:37 → ERHOLD 01:38 → PCU 15:16
PROVIDERS: Emergency Medicine; Internal Medicine; ADMIT Family Medicine
DX: I16.0 Hypertensive urgency (principal); I11.9 Hypertensive heart disease without heart failure; I08.0 Rheumatic disorders of both mitral and aortic valves; K21.9 Gastro-esophageal reflux disease without esophagitis; E03.9 Hypothyroidism, unspecified; E87.6 Hypokalemia; N40.0 Benign prostatic hyperplasia without lower urinary tract symptoms; E78.1 Pure hyperglyceridemia; Z88.8 Allergy status to other drugs, medicaments and biological substances; Z88.6 Allergy status to analgesic agent; Z79.82 Long term (current) use of aspirin; Z20.822 Contact with and (suspected) exposure to COVID-19; Z87.891 Personal history of nicotine dependence; R94.31 Abnormal electrocardiogram [ECG] [EKG]
CPT/HCPCS: 0241U; 36415; 70496; 70498; 71045; 80048; 80053; 80061; 81003; 82140; 83605; 83735; 84484; 85025; 93005; 93010; 93306; 97161; A9270; G0480; J0360; J1650; J7030; Q9967

== ENCOUNTER 2022-05-18 15:04 | Emergency (ER) | payer MEDICARE, OTHER ==
[~2022-05-18] VITALS: Ht 165.1 cm; Wt 84.0 kg
[~2022-05-18 15:04] MED LIST changes: +CARVEDILOL3.125 MG PO; +CATAPRES0.2 M1 PO; +LOSARTAN POTAS100 M1 PO; +LOSARTAN-HCTZ1 EAC5 PO; +NEURONTIN300 MG PO; +NURTEC ODT75 MG PO; +TAMSULOSIN HCL0.4 M1 PO
[2022-05-18 16:13] LABS: BASOPHILS ABSOLUTE AUTO 0.06 K/mm3 (0.00-0.23); BASOPHILS PERCENT AUTO 1 % (0-2); EOSINOPHILS ABSOLUTE AUTO 0.09 K/mm3 (0.00-0.68); EOSINOPHILS PERCENT AUTO 1 % (0-6); Hematocrit 42.5 % (37.0-53.0); Hemoglobin 15.5 g/dL (13.5-17.5); IMMATURE GRAN ABSOLUTE AUTO 0.04 K/mm3 (0.00-0.10); IMMATURE GRAN PERCENT AUTO 1 % (0-1); LYMPHOCYTES ABSOLUTE AUTO 1.99 K/mm3 (0.84-5.20); LYMPHOCYTES PERCENT AUTO 27 % (21-46); MONOCYTES ABSOLUTE AUTO 0.97 K/mm3 (0.16-1.47); MONOCYTES PERCENT AUTO 13 % (4-13); Mean Corpuscular HGB 30.1 pg (26.0-34.0); Mean Corpuscular HGB Conc 36.5 g/dL (31.5-36.5); Mean Corpuscular Volume 83 fL (80-100); Mean Platelet Volume 9.8 fL (9.1-12.4); NEUTROPHILS ABSOLUTE AUTO 4.12 K/mm3 (1.96-9.15); NEUTROPHILS PERCENT AUTO 57 % (41-73); Platelet Count 212 K/mm3 (150-400); RDW Coefficient Variation 13.2 % (11.7-14.2); RDW Standard Deviation 39.3 fL (35.1-46.3); Red Blood Cell Count 5.15 M/mm3 (4.30-5.90); White Blood Cell Count 7.27 K/mm3 (4.00-11.30)
[2022-05-18 16:34] LABS: Albumin, Blood 3.9 g/dL (3.4-5.0); Albumin/Globulin Ratio 1.1 (0.8-1.8); Bilirubin, Total 0.3 mg/dL (0.1-1.0); Bun/Creatinine Ratio 13.1 (12.0-20.0); Calcium, Blood 9.2 mg/dL (8.5-10.1); Creatinine, Blood 0.99 mg/dL (0.60-1.20); Globulin, Blood 3.6 g/dL (2.2-4.0); Potassium, Blood 3.1 mmol/L (3.5-5.5); Total Protein, Blood 7.5 g/dL (6.4-8.2)
[2022-05-18] MEDS ORDERED: Catapres0.1 MG PO (21:16)
[2022-05-18] MEDS ORDERED: Coreg6.25 MG PO (21:16)
[2022-05-18] MEDS ORDERED: LOSA50 PO (21:16)
== END 2022-05-18 22:02 | disposition home or self-care (01) ==
LOC: ER 15:04
PROVIDERS: Student in an Organized Health Care Education/Training Program
DX: I10 Essential (primary) hypertension (principal); R00.2 Palpitations; K21.9 Gastro-esophageal reflux disease without esophagitis; E03.9 Hypothyroidism, unspecified; Z79.890 Hormone replacement therapy; Z79.899 Other long term (current) drug therapy; Z79.82 Long term (current) use of aspirin; Z88.6 Allergy status to analgesic agent; Z88.8 Allergy status to other drugs, medicaments and biological substances; Z86.73 Personal history of transient ischemic attack (TIA), and cerebral infarction without residual deficits; Z91.14 Patient's other noncompliance with medication regimen
CPT/HCPCS: 36415; 71046; 80053; 84484; 85025; 93005; 93010; 99284-25; A9270

== ENCOUNTER → 2023-09-10 | Outpatient (CLI) | payer MEDICARE, OTHER ==
[~2023-09-10] MED LIST changes: +Coreg6.25 MG PO
== END ==
LOC: LAB SHORT 07:52 → PLD 07:52
DX: L82.1 Other seborrheic keratosis (principal)
CPT/HCPCS: 88305

== ENCOUNTER 2024-01-16 19:05 | Inpatient (IN) | payer MEDICARE, OTHER ==
[~2024-01-16] VITALS: Ht 167.6 cm; Wt 77.0 kg
[2024-01-16 21:07] LABS: Albumin, Blood 4.1 g/dL (3.4-5.0); Albumin/Globulin Ratio 1.2 (0.8-1.8); Bilirubin, Total 0.8 mg/dL (0.1-1.0); Bun/Creatinine Ratio 12.3 (12.0-20.0); Calcium, Blood 9.9 mg/dL (8.5-10.1); Creatinine, Blood 0.82 mg/dL (0.60-1.20); Globulin, Blood 3.5 g/dL (2.2-4.0); Magnesium, Blood 1.5 mg/dL (1.6-2.4); Potassium, Blood 3.3 mmol/L (3.5-5.5); Total Protein, Blood 7.6 g/dL (6.4-8.2)
[2024-01-16 21:28] LABS: Influenza A, PCR NEGATIVE (NEGATIVE); Influenza B, PCR NEGATIVE (NEGATIVE); Resp Syncytial Virus, PCR NEGATIVE (NEGATIVE); SARS-Cov-2 (COVID-19) PCR, MMC NEGATIVE (NEGATIVE)
[2024-01-16 21:31] LABS: BASOPHILS ABSOLUTE AUTO 0.03 K/mm3 (0.00-0.23); BASOPHILS PERCENT AUTO 0 % (0-2); EOSINOPHILS ABSOLUTE AUTO 0.02 K/mm3 (0.00-0.68); EOSINOPHILS PERCENT AUTO 0 % (0-6); Hematocrit 46.4 % (37.0-53.0); Hemoglobin 17.4 g/dL (13.5-17.5); IMMATURE GRAN ABSOLUTE AUTO 0.02 K/mm3 (0.00-0.10); IMMATURE GRAN PERCENT AUTO 0 % (0-1); LYMPHOCYTES ABSOLUTE AUTO 1.35 K/mm3 (0.84-5.20); LYMPHOCYTES PERCENT AUTO 17 % (21-46); MONOCYTES ABSOLUTE AUTO 0.81 K/mm3 (0.16-1.47); MONOCYTES PERCENT AUTO 10 % (4-13); Mean Corpuscular HGB 29.9 pg (26.0-34.0); Mean Corpuscular HGB Conc 37.5 g/dL (31.5-36.5); Mean Corpuscular Volume 80 fL (80-100); Mean Platelet Volume 9.9 fL (9.1-12.4); NEUTROPHILS ABSOLUTE AUTO 5.56 K/mm3 (1.96-9.15); NEUTROPHILS PERCENT AUTO 71 % (41-73); Platelet Count 257 K/mm3 (150-400); RDW Coefficient Variation 12.4 % (11.7-14.2); RDW Standard Deviation 35.2 fL (35.1-46.3); Red Blood Cell Count 5.82 M/mm3 (4.30-5.90); White Blood Cell Count 7.79 K/mm3 (4.00-11.30)
[2024-01-16] MEDS ORDERED: Potassium Chl 20MEQ/Water100ML 100 ML IV ONE (23:40)
[2024-01-16] MEDS ORDERED: Mag Sulfate 1 GM/D5% 100ML 100 ML IV ONE (23:40)
[2024-01-17] VITALS (10 sets, daily range): BP systolic 132–198; BP diastolic 67–119
[2024-01-17 00:12] LABS: Source, Urine Clean Catch
[2024-01-17 00:21] LABS: Bilirubin, Urine Neg (Neg); Blood, Urine Neg (Neg); Glucose Qualitative, Urine Neg (Neg); Ketones, Urine Neg (Neg); Leukocyte Esterase, Urine Neg (Neg); Nitrite, Urine Neg (Neg); Protein, Urine 1+ (Neg); Urobilinogen, Urine NORM (Normal); pH, Urine 6.5 (5.0-8.0)
[2024-01-17 00:29] LABS: Appearance, Urine Clear (Clear); Color, Urine Yellow (P-Yellow)
[2024-01-17] MEDS ORDERED: NS 1,000 ML IV SCH (00:35)
[2024-01-17] MEDS ORDERED: FLU VACC TS2024-25(6MOS UP)/PF 45 MCG/0.5 ML SYRINGE IM SCH (01:05)
[2024-01-17] MEDS ORDERED: ALLO100 PO (02:37)
[2024-01-17] MEDS ORDERED: CYMBALTA30 M1 PO (02:38)
[2024-01-17] MEDS ORDERED: AMLO10 PO (02:38)
[2024-01-17] MEDS ORDERED: Enalapril Malea20 MG PO (02:39)
[2024-01-17] MEDS ORDERED: HYDCHL50 PO (02:40)
[2024-01-17] MEDS ORDERED: NS 500 ML IV SCH (02:40)
[2024-01-17] MEDS ORDERED: SYNTHROID125 MC1 PO (02:41)
[2024-01-17 04:06] LABS: Anion Gap 12 mmol/L (3-11); Blood Urea Nitrogen 9 mg/dL (8-24); Bun/Creatinine Ratio 10.4 (12.0-20.0); CO2, Blood 28 mmol/L (21-32); Calcium, Blood 9.5 mg/dL (8.5-10.1); Chloride, Blood 91 mmol/L (98-108); Creatinine, Blood 0.87 mg/dL (0.60-1.20); Glomerular Filtration Rate 91 (60-); Glucose, Blood 148 mg/dL (70-99); Potassium, Blood 3.3 mmol/L (3.5-5.5); Sodium, Blood 128 mmol/L (136-145); Thyroid Stimulating Hormone <0.005 uIU/mL (0.360-4.800)
[2024-01-17 04:51] LABS: Osmolality, Serum 264 mos/KG (275-300)
[2024-01-17] MEDS ORDERED: Levothyroxine Sodium 0.125 MG Tab PO SCH (06:00)
--- NOTE | 2024-01-17 07:22 | NUR ---
ARRIVAL/ASSUMPTION OF CARE THIS RN ASSUMED CARE AT 0612 WHEN PT ARRIVED TO PCU. REPORT FROM RAPHAEL BARTHOLOMEW. PT TRANSFERRED TO HOSPITAL BED IND/SBA. VS; BP 182/100, HRR SR IN 90'S, AFEBRILE, SPO2 98% ON RA. DENIES CP/PRESSURE, DYSPNEA, N/V, PALPITATIONS. PT ENDORSES RECENT DIZZINESS, BUT DENIES IT CURRENTLY. REPORTS HAVING SEVERE HEADACHES. PT REPORTS DECREASE IN APPETITE OVER LAST TWO WEEKS. REPORTS MULTIPLE FALLS AT HOME WITHIN THE LAST "1 WEEK OR 2". PT A&O X4, THIS RN ABLE TO CONVERSE WITH PT OVER CHEMICAL TECHNICIAN PHONE (CHEMICAL TECHNICIAN #[id number]). PT DENIES ISSUES GI, BUT REPORTS HX OF BPH AND SURGERY FOR PROSTATE CANCER. PT REPORTS HAVING "NORMAL ISSUES AND SX" RELATED TO PROSTATE "ISSUES". PT ORIENTED TO ROOM AND CALL LIGHT, REMINDED TO CALL FOR HELP WITH CORDS AND SAFETY. PT VERBALIZED UNDERSTANDING. UPDATED ONCOMING RN.
[2024-01-17 08:46] LABS: BASOPHILS ABSOLUTE AUTO 0.02 K/mm3 (0.00-0.23); BASOPHILS PERCENT AUTO 0 % (0-2); EOSINOPHILS ABSOLUTE AUTO 0.04 K/mm3 (0.00-0.68); EOSINOPHILS PERCENT AUTO 1 % (0-6); Hematocrit 44.8 % (37.0-53.0); Hemoglobin 16.5 g/dL (13.5-17.5); IMMATURE GRAN ABSOLUTE AUTO 0.02 K/mm3 (0.00-0.10); IMMATURE GRAN PERCENT AUTO 0 % (0-1); LYMPHOCYTES ABSOLUTE AUTO 1.97 K/mm3 (0.84-5.20); LYMPHOCYTES PERCENT AUTO 26 % (21-46); MONOCYTES ABSOLUTE AUTO 1.21 K/mm3 (0.16-1.47); MONOCYTES PERCENT AUTO 16 % (4-13); Mean Corpuscular HGB 29.5 pg (26.0-34.0); Mean Corpuscular HGB Conc 36.8 g/dL (31.5-36.5); Mean Corpuscular Volume 80 fL (80-100); Mean Platelet Volume 9.8 fL (9.1-12.4); NEUTROPHILS ABSOLUTE AUTO 4.47 K/mm3 (1.96-9.15); NEUTROPHILS PERCENT AUTO 58 % (41-73); Platelet Count 245 K/mm3 (150-400); RDW Coefficient Variation 12.5 % (11.7-14.2); RDW Standard Deviation 36.1 fL (35.1-46.3); Red Blood Cell Count 5.59 M/mm3 (4.30-5.90); White Blood Cell Count 7.73 K/mm3 (4.00-11.30)
[2024-01-17 08:51] LABS: Albumin, Blood 4.1 g/dL (3.4-5.0); Albumin/Globulin Ratio 1.2 (0.8-1.8); Bilirubin, Total 0.6 mg/dL (0.1-1.0); Bun/Creatinine Ratio 8.7 (12.0-20.0); Calcium, Blood 9.5 mg/dL (8.5-10.1); Creatinine, Blood 1.04 mg/dL (0.60-1.20); Globulin, Blood 3.4 g/dL (2.2-4.0); Potassium, Blood 3.5 mmol/L (3.5-5.5); Total Protein, Blood 7.5 g/dL (6.4-8.2)
[2024-01-17] MEDS ORDERED: DULoxetine HCL 30 MG Cap DR PO SCH (09:00)
[2024-01-17] MEDS ORDERED: Allopurinol 100 MG Tab PO SCH (09:00)
[2024-01-17] MEDS ORDERED: Enoxaparin 40 MG/0.4 ML SYR SC SCH (09:00)
[2024-01-17] MEDS ORDERED: AmLODIPine Besylate 5 MG Tab PO SCH (09:00)
[2024-01-17] MEDS ORDERED: Enalapril Maleate 5 MG Tab PO SCH ×2 (09:00)
[2024-01-17] MEDS ORDERED: LORazepam 2 MG/ML 1ML Injection IV PRN (09:15)
--- NOTE | 2024-01-17 12:01 | NUR ---
UPDATE PT HAS HAD MULTPILE UNMEASURED VOIDS. PT HAS BEEN INSTRUCTED TO CALL AND TO USE THE URINAL FOR ACCURATED MEASURING, PT CONTINUES TO USE TOILET INDEPENDENTLY.
[2024-01-17] MEDS ORDERED: HydrALAZINE HCl 20 MG / ML 1ML Vial IV PRN (12:35)
--- NOTE | 2024-01-17 13:54 | NUR ---
Heart rate 140, sinus tachycardia, while pt was up walking around the room tethered with IV tube, B/P cuff and attempting to get around the bed to use the toilet. Assisted pt and he is back in bed at this time, HR 119 bpm, asymptomatic.
--- NOTE | 2024-01-17 13:59 | NUR ---
THIS RN RETURNED FROM LUNCH, BREAK NURSE DUDLEY REPORTED THAT PT'S HR WAS UP TO 140'S WHILE PT WAS AMBULATING TO BATHROOM TO URINATE. [facility] REPORTED THAT HR WAS 140-150'S FROM [id number]. PT HR CURRENTLY AT 110-120'S.
[2024-01-17] MEDS ORDERED: Metoprolol Succinate 25 MG TABCR PO SCH (14:15)
[2024-01-17] MEDS ORDERED: Lactulose 10 GM/15 ML UDC PO PRN (15:00)
--- NOTE | 2024-01-17 18:30 | NUR ---
SHIFT SUMMARY RECEIVED REPORT FROM MOLDING FITTER NURSE AND ASSUMED CARE AT 0700. PT SPEAKS SOUTH AFRICAN EXCUSIVELY, BUT IS ALERT AND ORIENTED TO SELF AND PLACE. PT TO MRI THIS MORNING. UPON ARRIVAL BACK PTS SYSTOLIC BP IN THE 190'S AND HR INTO THE 110'S AND UP INTO 150'S BRIEFLY WHEN UP AND AMBULATING IN ROOM. DR AVALOS NOTIFIED, NEW ORDERS PLACED. PT INSTRUCTED TO USE URINAL OR HAT, BUT CONTINUES TO USE TOILET FOR MANY SMALL, FREQUENT UNMEASURED VOIDS. AT BEDSIDE FOR MOST OF THE DAY. PLAN OF CARE IS UP TO DATE.
[2024-01-17] MEDS ORDERED: Acetaminophen 325 MG TABLET PO PRN (20:40)
[2024-01-17] MEDS ORDERED: TraZODone HCl 100 MG Tab PO SCH (21:00)
[2024-01-18 03:22] VITALS: BP 152/82
[2024-01-18 04:38] LABS: BASOPHILS ABSOLUTE AUTO 0.03 K/mm3 (0.00-0.23); BASOPHILS PERCENT AUTO 0 % (0-2); EOSINOPHILS ABSOLUTE AUTO 0.07 K/mm3 (0.00-0.68); EOSINOPHILS PERCENT AUTO 1 % (0-6); Hematocrit 42.1 % (37.0-53.0); IMMATURE GRAN ABSOLUTE AUTO 0.02 K/mm3 (0.00-0.10); IMMATURE GRAN PERCENT AUTO 0 % (0-1); LYMPHOCYTES ABSOLUTE AUTO 2.28 K/mm3 (0.84-5.20); LYMPHOCYTES PERCENT AUTO 32 % (21-46); MONOCYTES ABSOLUTE AUTO 1.33 K/mm3 (0.16-1.47); MONOCYTES PERCENT AUTO 19 % (4-13); Mean Corpuscular HGB 29.6 pg (26.0-34.0); Mean Corpuscular HGB Conc 35.6 g/dL (31.5-36.5); Mean Corpuscular Volume 83 fL (80-100); Mean Platelet Volume 10.1 fL (9.1-12.4); NEUTROPHILS ABSOLUTE AUTO 3.46 K/mm3 (1.96-9.15); NEUTROPHILS PERCENT AUTO 48 % (41-73); Platelet Count 231 K/mm3 (150-400); RDW Coefficient Variation 12.7 % (11.7-14.2); RDW Standard Deviation 38.3 fL (35.1-46.3); Red Blood Cell Count 5.07 M/mm3 (4.30-5.90); White Blood Cell Count 7.19 K/mm3 (4.00-11.30)
--- NOTE | 2024-01-18 04:48 | NUR ---
SHIFT SUMMARY NO ACUTE CHANGES THIS SHIFT. VSS. AXO - 3. FAMILY AT BEDSIDE / INTERPRETR PHONE IN USE PATIENT IS AN[place]LL[place] SPEAKING ONLY. PT'S BP MILDLY HIGH BUT STABLE <160 SBP. HEADACHE NOTED AT BEGINNING OF SHIFT, TYLENOL SUCCESFUL AT ALLEVIATING PAIN PER PT. ON RA. PT UP AND OOB MULTIPLE TIMES THIS SHIFT W/O INCIDENT. OTHERWISE, RESTING POST TRAZADONE DOSE PER EMAR. BED IN LOW POSITION WITH CALL LIGHT WOTHIN REACH.
[2024-01-18 05:00] LABS: Albumin, Blood 3.6 g/dL (3.4-5.0); Albumin/Globulin Ratio 1.3 (0.8-1.8); Bilirubin, Total 0.5 mg/dL (0.1-1.0); Bun/Creatinine Ratio 13.6 (12.0-20.0); Calcium, Blood 9.1 mg/dL (8.5-10.1); Creatinine, Blood 1.18 mg/dL (0.60-1.20); Globulin, Blood 2.8 g/dL (2.2-4.0); Potassium, Blood 3.2 mmol/L (3.5-5.5); Total Protein, Blood 6.4 g/dL (6.4-8.2)
[2024-01-18] MEDS ORDERED: Pantoprazole Sodium 40 MG Tab PO SCH (06:00)
[2024-01-18 08:25] VITALS: BP 139/65
[2024-01-18] MEDS ORDERED: Aspirin 81 MG Chew PO SCH (09:00)
[2024-01-18] MEDS ORDERED: Potassium Chloride 20 MEQ TabCR PO SCH (09:00)
[2024-01-18 11:42] VITALS: BP 145/94
[2024-01-18] MEDS ORDERED: TAMS.4ER PO (12:32)
[2024-01-18] MEDS ORDERED: ATOR40TA PO (12:32)
--- NOTE | 2024-01-18 13:49 | NUR ---
DISCHARGE UPDATE DISCHARGE PACKET GONE OVER WITH PT AND PT SON AT 1330, PT SON INTERPRETING PER PT REQUEST. PT DISCHARGED AT 1350 VIA WHEELCHAIR AND ON RA. DISCHARGE PACKET WITH PT SON AT TIME OF DISCHARGE. PT PERSONAL BELONGINS WITH PT AT TIME OF DISCHARGE.
== END 2024-01-18 13:46 | disposition home or self-care (01) | DRG 641 ==
LOC: ER 19:05 → PCU 01-17 01:02 → ERHOLD 01-17 01:02 → PCU 01-17 01:02
PROVIDERS: Family Medicine; Student in an Organized Health Care Education/Training Program; ADMIT Student in an Organized Health Care Education/Training Program
DX: E87.1 Hypo-osmolality and hyponatremia (principal); I50.22 Chronic systolic (congestive) heart failure; R29.6 Repeated falls; K21.9 Gastro-esophageal reflux disease without esophagitis; I11.0 Hypertensive heart disease with heart failure; E03.9 Hypothyroidism, unspecified; G47.00 Insomnia, unspecified; E78.00 Pure hypercholesterolemia, unspecified; E87.6 Hypokalemia; E86.1 Hypovolemia; Z88.8 Allergy status to other drugs, medicaments and biological substances; Z88.6 Allergy status to analgesic agent; Z79.890 Hormone replacement therapy; Z79.899 Other long term (current) drug therapy; Z79.82 Long term (current) use of aspirin; Z85.46 Personal history of malignant neoplasm of prostate; Z86.73 Personal history of transient ischemic attack (TIA), and cerebral infarction without residual deficits
CPT/HCPCS: 0241U; 36415; 70450; 70551; 80048; 80053; 83735; 83930; 83935; 84300; 84443; 84484; 85025; 93005; 93010; 96374; 96375; 99285-25; A9270; J0360; J2060; J3475; J3480; J7030; J7040

== ENCOUNTER 2024-01-23 12:20 | Day surgery (SDC) | payer MEDICARE, OTHER ==
[~2024-01-23] VITALS: Ht 167.6 cm; Wt 75.3 kg
[~2024-01-23 12:20] MED LIST changes: +ALLO100 PO; +CYMBALTA30 M1 PO; +Enalapril Malea20 MG PO; +Lactated Ringer's 1,000 ML IV ONE; +SYNTHROID125 MC1 PO
[2024-01-23] MEDS ORDERED: Lactated Ringer's 1,000 ML IV ONE (13:52)
[2024-01-23] MEDS ORDERED: Lidocaine HCl 2% 10 ML SDA ONE (13:56)
[2024-01-23] MEDS ORDERED: propofoL 50 ML IV ONE (13:56)
--- NOTE | 2024-01-23 14:18 | NUR ---
01/23/24 1418 ROSIE ANTUNEZ RN DID ASSESSEMENT USING GEOSCIENCES FACULTY MEMBER. PT UP TO RESTROOM W/ RN ASSIST PREOP
[2024-01-23 15:30] VITALS: BP 139/97
== END 2024-01-23 15:18 | disposition home or self-care (01) ==
LOC: ORSCSDS 12:20
PROVIDERS: Specialist
PROC: 0DB68ZX Excision of Stomach, Via Natural or Artificial Opening Endoscopic, Diagnostic (ICD-10-PCS; principal; 2024-01-23 14:00)
PROC: 0DB98ZX Excision of Duodenum, Via Natural or Artificial Opening Endoscopic, Diagnostic (ICD-10-PCS; principal; 2024-01-23 14:00)
PROC: 0DB58ZX Excision of Esophagus, Via Natural or Artificial Opening Endoscopic, Diagnostic (ICD-10-PCS; principal; 2024-01-23 14:00)
DX: R10.13 Epigastric pain (principal); K21.9 Gastro-esophageal reflux disease without esophagitis; K29.80 Duodenitis without bleeding; Z87.11 Personal history of peptic ulcer disease; G47.33 Obstructive sleep apnea (adult) (pediatric); Z86.73 Personal history of transient ischemic attack (TIA), and cerebral infarction without residual deficits; N18.9 Chronic kidney disease, unspecified; Z79.899 Other long term (current) drug therapy
CPT/HCPCS: 88305; 88342; J2003; J2704; J7120

== ENCOUNTER → 2024-04-22 | Outpatient (CLI) | payer MEDICARE, OTHER ==
[~2024-04-22] MED LIST changes: -Lactated Ringer's 1,000 ML IV ONE
[2024-04-22 18:49] LABS: BASOPHILS ABSOLUTE AUTO 0.05 K/mm3 (0.00-0.23); BASOPHILS PERCENT AUTO 1 % (0-2); EOSINOPHILS PERCENT AUTO 4 % (0-6); Hematocrit 45.1 % (37.0-53.0); Hemoglobin 15.9 g/dL (13.5-17.5); IMMATURE GRAN ABSOLUTE AUTO 0.01 K/mm3 (0.00-0.10); IMMATURE GRAN PERCENT AUTO 0 % (0-1); LYMPHOCYTES ABSOLUTE AUTO 1.68 K/mm3 (0.84-5.20); LYMPHOCYTES PERCENT AUTO 34 % (21-46); MONOCYTES ABSOLUTE AUTO 1.05 K/mm3 (0.16-1.47); MONOCYTES PERCENT AUTO 21 % (4-13); Mean Corpuscular HGB 29.1 pg (26.0-34.0); Mean Corpuscular HGB Conc 35.3 g/dL (31.5-36.5); Mean Corpuscular Volume 82 fL (80-100); Mean Platelet Volume 9.6 fL (9.1-12.4); NEUTROPHILS ABSOLUTE AUTO 1.96 K/mm3 (1.96-9.15); NEUTROPHILS PERCENT AUTO 40 % (41-73); Platelet Count 187 K/mm3 (150-400); RDW Coefficient Variation 13.4 % (11.7-14.2); RDW Standard Deviation 39.8 fL (35.1-46.3); Red Blood Cell Count 5.47 M/mm3 (4.30-5.90); White Blood Cell Count 4.95 K/mm3 (4.00-11.30)
[2024-04-22 19:07] LABS: Albumin, Blood 4.2 g/dL (3.4-5.0); Albumin/Globulin Ratio 1.2 (0.8-1.8); Bilirubin, Total 0.3 mg/dL (0.1-1.0); Bun/Creatinine Ratio 8.4 (12.0-20.0); Calcium, Blood 10.1 mg/dL (8.5-10.1); Creatinine, Blood 1.31 mg/dL (0.60-1.20); Globulin, Blood 3.5 g/dL (2.2-4.0); Potassium, Blood 3.5 mmol/L (3.5-5.5); Thyroid Stimulating Hormone 0.076 uIU/mL (0.360-4.800); Total Protein, Blood 7.7 g/dL (6.4-8.2)
[2024-04-23 09:22] LABS: Free Thyroxine 1.31 ng/dL (0.70-1.60)
== END | disposition home or self-care (01) ==
LOC: LAB 18:44 → LAB SHORT 18:44
PROVIDERS: Family Medicine
DX: E87.6 Hypokalemia (principal); E05.90 Thyrotoxicosis, unspecified without thyrotoxic crisis or storm; R53.83 Other fatigue; R10.9 Unspecified abdominal pain
CPT/HCPCS: 80053; 83690; 84439; 84443; 85025